=== PATIENT | female | born 1955 | race Caucasian/White ===

== ENCOUNTER 2022-06-29 14:41 | Outpatient (REF) | payer MEDICARE, SELFPAY ==
[2022-06-29 17:23] LABS: ALT 36 U/L (14-59); AST 38 U/L (15-37); Albumin 4.3 g/dL (3.4-5.0); Alkaline Phosphatase 77 U/L (46-116); Anion Gap 12.4 mmol/L (3-11); BUN 14 mg/dL (7-18); Bilirubin, Total 0.3 mg/dL (0.2-1.0); CO2 25.6 mmol/L (21.0-32.0); Calcium 10.1 mg/dL (8.5-10.1); Calculated LDL 98 mg/dL (<100); Chloride 99 mmol/L (98-107); Cholesterol 209 mg/dL (<200); Estimated GFR 62.52 (mL/min/1.73m2); Glucose 94 mg/dL (74-106); HDL Cholesterol 94 mg/dL (40-60); Potassium 4.7 mmol/L (3.5-5.1); Sodium 137 mmol/L (136-145); Total Protein 8.1 g/dL (6.4-8.2); Triglyceride 85 mg/dL (<150)
[2022-06-29 18:13] LABS: Abs Immature Grans 0.01 10^3/uL (0.0-0.06); Absolute Basophil Count 0.06 10^3/uL (0.0-0.2); Absolute Eosinophil Count 0.14 10^3/uL (0.0-0.7); Absolute Lymphocyte Count 1.72 10^3/uL (1.2-3.4); Absolute Monocyte Count 0.71 10^3/uL (0.1-0.8); Absolute Neutrophil Count 3.74 10^3/uL (1.2-6.7); Basophils % 0.9; Eosinophils % 2.2; HCT 41.7 % (36.0-46.0); HGB 14.3 g/dL (11.2-15.7); Immature Grans % 0.2; MCH 32.3 pg (27.0-33.0); MCHC 34.3 % (32.0-36.0); MCV 94 fL (80-95); Monocytes % 11.1; Neutrophils % 58.6; Platelet Count 281 10^3/uL (130-400); RBC 4.43 10^6/uL (3.93-5.22); RDW 13.2 % (11.7-14.6); RDW-SD 46.4 fL; WBC 6.38 10^3/uL (4.4-10.8)
== END 2022-06-29 14:42 | disposition home or self-care (01) ==
LOC: NCHCN 14:41
PROVIDERS: Visit Provider Nurse Practitioner Family
DX: E78.70 Disorder of bile acid and cholesterol metabolism, unspecified (principal); J44.9 Chronic obstructive pulmonary disease, unspecified; Z87.891 Personal history of nicotine dependence; Z86.19 Personal history of other infectious and parasitic diseases
CPT/HCPCS: 80053; 80061; 85025